=== PATIENT | male | born 2005 | race Caucasian/White ===

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

== ENCOUNTER 2025-03-24 13:37 | Emergency (ER) | payer BC, MEDICAID, SELFPAY ==
[2025-03-24 13:40] VITALS: BP 88/60; PULSE 86; RESP 22; TEMP 36.3; O2SAT 100
[2025-03-24 13:51] VITALS: BMI 21.4
--- NOTE | 2025-03-24 14:29 | EDS_ITS ---
HPI HPI - GI History of Present Illness Chief Complaint: Nausea/Vomiting Informant: patient Abdominal Pain/Flank Pain Onset: Today and Hours Context: Gradual Onset Timing: Continuous Location: Epigastric Current Severity: Mild Maximum Severity: Mild Nausea/Vomiting/Emesis GI Symptom: Positive for Nausea and Vomiting Onset: Today and Hours Severity: Moderate Diarrhea/Melena/Hematochezia GI Symptom: Positive for Diarrhea Onset: Today Stool Quality: Positive for Loose Severity: Mild Associated Symptoms Associated Symptoms: Negative for Dysuria, Frequency, Hematuria or Urgency Narrative Narrative: 19-year-old male history prior substance abuse does use marijuana and has the last several weeks. Also has reportedly a deficiency and a liver enzyme that he cannot process the finding. He has had at least 3 or 4 episodes like this before in the last several years where he gets intractable nausea vomiting. Epigastric abdominal discomfort. No hematemesis. No melena. This started around 3 AM this morning. He had 1 bout of loose stool. Multiple episodes of nausea and vomiting. No prior abdominal surgery. Prior similar symptoms: Yes Recent Illness/Hospitalization: No PFSH [facility] Medical History Hyperammonemia Substance use Anxiety Depression Medical History unable to obtain Home Medications ?Medication ?Instructions ?Recorded ?Last Taken ?Type sertraline 50 mg tablet 25 mg PO DAILY 07/06/2106/15 History alprazolam 0.25 mg tablet 0.25 mg PO QHS 2 weeks #14 t abs 07/09/21 Unknown Rx pantoprazole 20 mg tablet,delayed 20 mg PO BID #60 tab s 06/06/22 Unknown Rx release scopolamine base 1 mg over 3 days 1 patch transdermal Q3D #10 ea 06/06/22 Unknown Rx transdermal patch sucralfate 100 mg/mL oral 10 ml PO QAC #1,000 mL 07/05 Unknown Rx suspension ondansetron 4 mg disintegrating 4 mg PO Q8H PRN PRN Na usea #10 tabs 04/01/23 Unknown Rx tablet dicyclomine 10 mg capsule 10 mg PO TID PRN abdominal 1 05/25/24 Unknown Rx discomfort #10 caps dicyclomine 20 mg tablet 40 mg (2 x 20 mg) PO TID PRN 03/24/25 Unknown Rx abdominal pain #10 tabs ondansetron 4 mg disintegrating 4 mg PO Q6H PRN nausea and 03/24/25 Unknown Rx tablet vomiting #10 tabs Allergy/AdvReac Type Severity Reaction Status Date / Time amoxicillin Allergy Hives Verified 03/24/25 13:42 Family History no significant family his Surgical History History of tonsillectomy and adenoidectomy Surgical History no surgical history Social History Smoking Status: Never smoker ROS ROS ED ROS Narrative Nausea vomiting. Epigastric abdominal discomfort. Constitutional Constitutional ED: Denies chills or fever(s) ENT ENT ED: Denies ear pain Cardiovascular Cardiovascular: Denies chest pain or palpitations Respiratory/Chest Respiratory/Chest: Denies cough or dyspnea Gastrointestinal Gastrointestinal: Reports abdominal pain, diarrhea and nausea Genitourinary Genitourinary ED: Denies dysuria or hematuria Musculoskeletal Musculoskeletal: Denies arthralgias or back pain Integumentary Denies abscess or Abrasions Neurologic Neurologic: Denies headache(s) Psychiatric Psychiatric: Denies anxiety or depression Endocrine Endocrinology: Denies polydipsia Hematologic/Lymphatic Hematologic/Lymphatic: Denies easy bleeding or easy bruising Allergic/Immunologic Allergic/Immunologic ED: Denies mouth swelling, tongue swelling or urticaria EXAM Physical Exam Narrative Exam Narrative: Vital signs initial blood pressure 88/60. Afebrile. Pulse ox 9%. He does not look septic. Did not look toxic. He does have moist mucous membranes. H EENT exam pupils round react to light. Moist mucous membranes. Posterior pharynx unremarkable. Neck nontender no lymphadenopathy. Back nontender. No CVA tenderness. Lungs clear to auscultation bilaterally. Heart regular rhythm rate about 85 no murmur. Chest wall and ribs nontender. Abdomen soft nondistended normal bowel sounds without peritoneal signs. Right upper right lower quadrant unremarkable. No obstruction. No mass. No hernia. Moving all 4 extremities. Nontender no edema. Normal strength. Neurologically is awake alert. Answer questions following commands. No focal motor deficits. 2 females present in the room. Const Vital Signs: 03/24/25 13:40 03/24/25 15:13 Temperature 97.4 F L Temperature Source Temporal Pulse Rate 86 73 Respiratory Rate 22 H 27 H Blood Pressure 88/60 L 121/56 H Blood Pressure Mean 69 77 Pulse Ox 100 100 Oxygen Delivery Method Room Air Room Air MDM MDM MDM Narrative Medical decision making narrative: 19-year-old intractable nausea and vomiting epigastric abdominal pain. Clinically this is cyclic vomiting. He has a history of some type of enzyme deficiency in his liver also. He will be treated with IV fluids. Pain and nausea medications. I do not think he needs any imaging at this time depending on his labs. Repeat exam around 3:32 PM after he was treated with IV fluids, oral, morphine and Bentyl. Right now he is just drank some water. His abdomen is benign. He just got the IM Bentyl. Reevaluated him a little bit. Currently does not need anything more for nausea. Abdomen is completely nondistended nontender. Patient doing well at 4:25 PM. They are comfortable with him being discharged home. Outpatient follow-up. Prescription for Zofran and oral Bentyl. This may be secondary to cyclic vomiting. We discussed that. History & Record Review Discussion w/independent historian: Patient and Family Additional record(s) reviewed:: Prior outpatient record, Prior ED visit, Prior labs and No prior records Lab Data Attestation: I reviewed the patient's lab results. Lab results narrative: CBC unremarkable. White count of 7. H&H 16 and 46. Platelets 203. Chemistries unremarkable gap is elevated 17. BUN and creatinine 15 and 1. Glucose 141. Liver enzymes showed total bili 1.76. AST of 46. Lipase is normal at 43. Ammonia level normal at 23. Labs: Laboratory Results - last 24 hr 03/24/25 14:19 WBC 7.4 RBC 5.40 Hgb 16.3 Hct 46.5 MCV 86.1 MCH 30.2 MCHC 35.1 RDW Std Deviation 38.8 RDW Coeff of Denilson 12.3 Plt Count 203 MPV 9.3 Immature Gran % (Auto) 0.300 Neut % (Auto) 87.5 H Lymph % (Auto) 3.9 L [place] % (Auto) 8.0 Eos % (Auto) 0.0 Baso % (Auto) 0.3 Absolute Neuts (auto) 6.5 Absolute Lymphs (auto) 0.29 L Nucleated RBC % 0 Sodium 137 Potassium 3.7 Chloride 100 Carbon Dioxide 19.7 L Anion Gap 17 H BUN 15 Creatinine 1.05 Estim Creat Clear Calc 130.16 Est GFR (MDRD) Non-Af 104 BUN/Creatinine Ratio 14.6 Glucose 141 H Calcium 9.7 Total Bilirubin 1.76 H AST 46 H ALT 32 Alkaline Phosphatase 57 Ammonia 23.0 Total Protein 7.1 Albumin 4.6 Globulin 2.6 Albumin/Globulin Ratio 1.8 Lipase 43 Discharge Plan Triage Chief Complaint: Nausea/Vomiting Other Complaint: Syncope ED Provider: Rizwan Gloria Dx/Rx/DC Orders Clinical Impression: Vomiting, Cyclic vomiting syndrome Instructions: ED Cyclic Vomiting Syndrome Prescriptions: New ondansetron 4 mg tablet,disintegrating 4 mg PO Q6H PRN (Reason: nausea and vomiting) Qty: 10 0RF dicyclomine 20 mg tablet 40 mg PO TID PRN (Reason: abdominal pain) Qty: 10 0RF dicyclomine 10 mg capsule 10 mg PO TID PRN (Reason: abdominal discomfort) Qty: 10 0RF No Action pantoprazole 20 mg tablet,delayed release (DR/EC) 20 mg PO BID Qty: 60 2RF scopolamine base 1 mg over 3 days patch 3 day 1 patch transdermal Q3D Qty: 10 2RF sertraline 50 mg tablet 25 mg PO DAILY alprazolam 0.25 mg Tablet 0.25 mg PO QHS 14 Days Qty: 14 0RF ondansetron [ondansetron] 4 mg tablet,disintegrating 4 mg PO Q8H PRN PRN (Reason: Nausea) Qty: 10 0RF sucralfate 100 mg/mL suspension 10 ml PO QAC Qty: 1000 0RF Primary Care Provider: Care Physician,No Primary Referrals: Lg Méndez MD [Non-Staff, Pediatrics] - 3-5 Days if not improving Activity Restrictions/Additional Instructions: Plenty of fluids and rest. Slowly increase your diet as tolerated. Zofran as needed for nausea May swallow or let dissolve under your tongue Bentyl for abdominal cramping. Follow-up with primary care physician if not improving return to emergency department if feeling worse. Print Language: Khmer Disposition Disposition: Home, Self Care
[2025-03-24] MEDS: Ketorolac 30 MG/ML Syringe IV (14:47)
[2025-03-24] MEDS: 0.9% Normal Saline (1000mL) 1,000 ML 999 ML IV (14:47)
[2025-03-24 15:04] LABS: Hematocrit 46.5 % (40-54); Hemoglobin 16.3 g/dL (13.0-16.5); Immature Granulocytes Count 0.020 X10^3/uL (0.0-0.0); Mean Corp Hgb Conc 35.1 g/dL (32-36); Mean Corpuscular Volume 86.1 fL (80-94); Mean Platelet Vol. 9.3 fl (6.2-12.0); NRBC Flagged by Analyzer 0 % (0-5); POSITIVE DIFFERENTIAL YES; Platelet Count 203 K/mm3 (150-450); RBC Distribution Width CV 12.3 % (11.6-14.6); RBC Distribution Width SD 38.8 fl (35.1-43.9); Red Blood Count 5.40 M/mm3 (4.6-6.2); White Blood Count 7.4 K/mm3 (4.4-11.0)
[2025-03-24 15:13] VITALS: BP 121/56; PULSE 73; RESP 27; O2SAT 100
[2025-03-24 15:16] LABS: AST(SGOT) 46 U/L (<=37); Alanine Aminotransfer ALT/SGPT 32 U/L (<=46); Albumin, Serum 4.6 g/dL (3.5-5.0); Alkaline Phosphatase 57 U/L (40-129); Anion Gap 17 (5-15); BUN 15 mg/dL (4-19); BUN/Creat Ratio 14.6 RATIO (10-20); Calcium,Total 9.7 mg/dL (7.6-11.0); Carbon Dioxide 19.7 mmol/L (21.0-32.0); Chloride 100 mmol/L (98-108); Estimated Creatinine Clearance 130.16 ml/min (50-250); Globulin 2.6 g/dL (2.2-4.2); Glucose 141 mg/dL (70-99); Lipase 43 U/L (13-75); Potassium 3.7 mmol/L (3.3-5.1)
[2025-03-24 15:20] LABS: Ammonia 23.0 umol/L (16-60)
[2025-03-24 16:04] LABS: Mucous, Urine 0 SEEN /hpf (<or=2+)
[2025-03-24 16:06] VITALS: BP 100/45; PULSE 60; RESP 12; O2SAT 100
[2025-03-24 16:14] LABS: Color, Urine Yellow (Yellow); Glucose, Dipstick Normal (Normal); Leukocyte Esterase-Dipstick Negative /ul (Negative); Nitrite-Dipstick Negative (Negative); Occult Blood-Urine Negative /ul (Negative); Protein-Dipstick 30 mg/dl (Negative); Specific Gravity, Urine 1.010 (1.002-1.030); Urine Bilirubin Dipstick Negative (Negative)
[2025-03-24 16:40] VITALS: BP 100/45; PULSE 70; RESP 16; TEMP 36.8; O2SAT 100
[2025-03-24 16:58] LABS: Ketone-Dipstick 150 mg/dl (Negative)
[2025-03-24 17:44] LABS: Red Blood Cells-Urine 0-5 SEEN /hpf (0-5); Squamous Epithelial Cells - UA 0-5 SEEN /hpf (0-5)
== END 2025-03-24 16:49 | disposition home or self-care (01) ==
PROVIDERS: Emergency Provider Emergency Medicine; Visit Provider Emergency Medicine
DX: R11.15 Cyclical vomiting syndrome unrelated to migraine (principal)
CPT/HCPCS: 80053; 81001; 82140; 83690; 85025; 96361; 96372; 96374; 96375; 96376; 99284; A4216; J2405